=== PATIENT | female | born 1985 | race Asian ===

== ENCOUNTER → 2019-10-10 | Outpatient (CLI) | payer BC ==
[~2019-10-10] MED LIST: CANASA 1000MG1000 MG RC; FERRIMIN 150150 M1 PO; IBU600 MG PO; LEVOXYL0.125 MG PO; PERCOCET 325 MG1 TA2 PO; PLAQUENIL 200M200 MG PO; STOOL SOFTENER100 M2 PO; ZANTAC 150MG T150 MG PO
== END ==
LOC: COL.RAD 09:14
DX: D64.9 Anemia, unspecified (principal); L93.0 Discoid lupus erythematosus
CPT/HCPCS: Q9967

== ENCOUNTER → 2021-07-19 | Emergency (ER) | payer BC ==
[~2021-07-19] VITALS: Ht 149.9 cm; Wt 78.2 kg
[2021-07-19 17:19] LABS: HEMOGLOBIN 11.6 g/dl (12.5-16.0); MEAN CELL VOLUME 87 fl (80.0-100.0); MEAN CORPUSCULAR HEMOGLOBIN 28 pg (27.0-31.0); MEAN CORPUSCULAR HGB CONC 33 g/dl (33.0-37.0); RED BLOOD COUNT 4.08 M/mm3 (4.10-5.30); REDCELL DISTRIBUTION WIDTH-CV 15.4 % (11.5-14.5)
[2021-07-19 17:23] LABS: HEMATOCRIT 35.5 % (37.0-47.0)
[2021-07-19 17:25] LABS: PLATELET COUNT 19 K/mm3 (130-400)
[2021-07-19 17:28] LABS: COLLECTION METHOD CLEAN CATCH
[2021-07-19 17:41] LABS: MUCOUS Present (NOT PRESENT); PH 5 (5-8); SQUAMOUS EPITHELIAL 0-2 /hpf (0-10); URINE APPEARANCE Clear (CLEAR/HAZY); URINE BACTERIA Rare (NONE SEEN); URINE BILIRUBIN Negative (NEGATIVE); URINE BLOOD 3+ (NEGATIVE); URINE COLOR Yellow (YELLOW); URINE GLUCOSE Negative (NEGATIVE); URINE KETONE Negative (NEGATIVE); URINE LEUKOCYTE ESTERASE Negative (NEGATIVE); URINE NITRATE Negative (NEGATIVE); URINE PROTEIN(semi-quant) Negative (NEGATIVE); URINE RBC 20-50 /hpf (0-2); URINE UROBILINOGEN Negative (NEGATIVE)
[2021-07-19 17:58] LABS: ALBUMIN 3.4 gm/dL (3.5-5.0); BILIRUBIN,TOTAL 0.9 mg/dL (0.2-1.2); CALCIUM 8.3 mg/dL (8.4-10.2); CREATININE, serum 0.74 mg/dL (0.57-1.11); POTASSIUM 4.2 mmol/L (3.5-4.5); TOTAL PROTEIN 7.1 gm/dL (6.2-8.1)
[2021-07-19 18:08] LABS: BAND 3 % (0-10); LYMPHOCYTE 6 % (20.0-51.0); NEUTROPHILS 88 % (42.0-75.2); PLATELET ESTIMATE DECREASED (NORMAL)
[2021-07-19 18:09] LABS: HYPOCHROMIA 1+; OVALOCYTES 1+
[2021-07-19 18:17] LABS: TRICYCLIC ANTIDEPRESS URINE NEGATIVE
[2021-07-19 18:18] LABS: THYROID STIMULATING HORMONE 3.271 uIU/mL (0.350-4.940)
[2021-07-19 21:55] VITALS: BP 101/64; PULSE 84; TEMP 98.4
== END ==
LOC: COL.ER 15:44
PROVIDERS: Physician Assistant
DX: R10.9 Unspecified abdominal pain (principal); E87.1 Hypo-osmolality and hyponatremia; R07.0 Pain in throat; D69.6 Thrombocytopenia, unspecified; M32.9 Systemic lupus erythematosus, unspecified; E03.9 Hypothyroidism, unspecified; Z88.6 Allergy status to analgesic agent; Z79.890 Hormone replacement therapy
CPT/HCPCS: J2060; J7030; Q9967

== ENCOUNTER 2023-09-03 06:48 | Outpatient (CLI) | payer OTHER ==
[~2023-09-03] VITALS: Ht 149.9 cm; Wt 78.0 kg
[2023-09-03] VITALS (27 sets, daily range): BP systolic 119–159; BP diastolic 8–106; PULSE 62–84; TEMP 98.2
[2023-09-03] MEDS ORDERED: INDERAL 20MG20 MG PO (07:33)
[2023-09-03] MEDS ORDERED: COZAAR100 MG PO (07:33)
[2023-09-03] MEDS ORDERED: LUNESTA2 MG PO (07:34)
[2023-09-03] MEDS ORDERED: LYRICA 25MG CAP25 MG PO (07:35)
[2023-09-03] MEDS ORDERED: ADALAT CC90 MG PO (07:35)
[2023-09-03] MEDS ORDERED: PROMACTA50 MG PO (07:36)
[2023-09-03] MEDS ORDERED: ULTRAM 50MG TAB50 MG PO (07:36)
[2023-09-03] MEDS ORDERED: INCASSIA0.35 MG PO (07:36)
[2023-09-03] MEDS ORDERED: FIORICET 325 MG1 TA1 PO (07:38)
[2023-09-03] MEDS ORDERED: GAS AID MAXIMU125 MG PO (07:41)
[2023-09-03] MEDS ORDERED: IMURAN 50MG TAB50 MG PO (07:41)
[2023-09-03 07:42] LABS: BASO % 0.9 % (0.0-2.0); EOS # 0.1 K/mm3 (0.0-0.7); EOS % 1.8 % (0.0-4.0); GRAN # 2.2 K/mm3 (1.4-6.5); GRAN % 65.7 % (42.2-75.2); HEMOGLOBIN 10.4 g/dl (12.5-16.0); LYMPH # 0.6 K/mm3 (1.2-3.4); LYMPH % 18.3 % (20.0-51.0); MEAN CELL VOLUME 90 fl (80.0-100.0); MEAN CORPUSCULAR HEMOGLOBIN 30 pg (27-31); MEAN CORPUSCULAR HGB CONC 34 g/dl (33.0-37.0); MEAN PLATELET VOLUME 10.9 fl (7.4-10.4); MONO # 0.4 K/mm3 (0.1-0.6); PLATELET COUNT 290 K/mm3 (130-400); RED BLOOD COUNT 3.44 M/mm3 (4.10-5.30); REDCELL DISTRIBUTION WIDTH-CV 15.2 % (11.5-14.5)
[2023-09-03] MEDS ORDERED: EUTHYROX88 MCG PO (07:42)
[2023-09-03] MEDS ORDERED: FOLIC ACID 11 MG/TA1 PO (07:42)
[2023-09-03] MEDS ORDERED: MASON NATURAL2000 IU PO (07:44)
[2023-09-03] MEDS ORDERED: SENEXON-S 50-81 EACH PO (07:45)
[2023-09-03 08:03] LABS: PROTHROMBIN TIME 11.1 SECONDS (9.7-12.8)
[2023-09-03] MEDS ORDERED: Midazolam 2 MG/2 ML VIAL IV SCH (08:20)
[2023-09-03] MEDS ORDERED: fentaNYL 50 MCG/ML 2 ML VIAL IV SCH (08:20)
[2023-09-03] MEDS ORDERED: Acetaminophen 325 MG TAB PO ONE (13:30)
--- NOTE | 2023-09-03 16:21 | NUR ---
Pt ambulated to [facility] with a steady gait, accompanied by bright weeks. Pt is scheduled for a kidney biopsy. IV started, labs drawn. Meds and HX reviewed with the pt. Consent for the procedure signed. Pt was taken to radiology for the procedure. Once the pt came back to [facility] they were offered something to eat and drink. Accepted a water and a meal was ordered. Pt was put on a 6 hr bedrest. Asked to use the restroom, pt was put on a bed miguel. Was unable to use this. Per it was okay to get the pt up to the restroom in the pt room, just be sure to limit movement. The pt used the restroom and no blood noticed in the urine. The biopsy site was also assessed at this time, skin clean, dry, and intact. The pt then went back to bed and remanied on bedrest. They used the restroom a total of 3 times during the 6hr bedrest. Each time no blood was noticed and biopsy site was clean, dry, and intact. Lunch was ordered for the pt. Pt reported some discomfort at biospy site, tylenol was given, which helped. Dr. Ortega was called at the 6hr post procedure time, he stated that if she walks around the unit a few times and is doing well then the pt can leave around 1600. Pt did well walking the unit and stated they felt fine. Pt was given discharge education and information. No questions at this time. Pt exited the unit by wheelchair to dads car.
== END 2023-09-03 16:19 | disposition home or self-care (01) ==
LOC: COL.RAD 06:48
PROVIDERS: Internal Medicine Nephrology
DX: R80.9 Proteinuria, unspecified (principal)
CPT/HCPCS: J2250; J3010

== ENCOUNTER → 2024-05-04 | Outpatient (CLI) | payer OTHER ==
[~2024-05-04] MED LIST changes: +ADALAT CC90 MG PO; +COZAAR100 MG PO; +EUTHYROX88 MCG PO; +FIORICET 325 MG1 TA1 PO; +FOLIC ACID 11 MG/TA1 PO; +GAS AID MAXIMU125 MG PO; +IMURAN 50MG TAB50 MG PO; +INCASSIA0.35 MG PO; +INDERAL 20MG20 MG PO; +LUNESTA2 MG PO; +LYRICA 25MG CAP25 MG PO; +MASON NATURAL2000 IU PO; +PROMACTA50 MG PO; +SENEXON-S 50-81 EACH PO; +ULTRAM 50MG TAB50 MG PO
== END ==
LOC: COL.RAD 11:47
DX: G43.909 Migraine, unspecified, not intractable, without status migrainosus (principal); F33.1 Major depressive disorder, recurrent, moderate; L93.0 Discoid lupus erythematosus